=== PATIENT | female | born 1980 | race Caucasian/White ===

== ENCOUNTER 2019-08-06 10:47 | Inpatient (IN) ==
[2019-08-06] MEDS ORDERED: ASPIRIN PO ONE (11:41)
--- NOTE | 2019-08-06 11:43 | EKG Report ---
Test Performed on : 08/06/2019 11:31:37 AM Test Reason : cp Blood Pressure : / mmHG Vent. Rate : 076 BPM Atrial Rate : 076 BPM P-R Int : 132 ms QRS Dur : 072 ms QT Int : 402 ms P-R-T Axes : 022 -08 007 degrees QTc Int : 452 ms Normal sinus rhythm. Possible Left atrial enlargement Left ventricular hypertrophy Abnormal ECG No previous ECGs available Unconfirmed Result
[2019-08-06] MEDS ORDERED: NITROGLYCERIN TOP ONE (11:51)
--- NOTE | 2019-08-06 11:55 | PROVIDER DOCUMENTATION ---
HPI-Chest Pain - General Chief Complaint: Chest Pain Stated Complaint: CP Time Seen by Provider: 08/06/19 11:40 Source: patient Allergies/Adverse Reactions: Patient Allergies Allergy/AdvReac Type Severity Reaction Status Date / Time gemfibrozil Allergy ANAPHYLAXIS Verified 08/06/19 11:49 Home Medications: Home Medication List Medication Instructions Recorded Confirmed Last Taken Type Atenolol [Tenormin] 1 tab PO DAILY 08/06/19 08/06/19 08/05/19 History Clonazepam [Klonopin] 1 tab PO BID PRN 08/06/19 08/06/19 08/06/19 History Escitalopram Oxalate [Lexapro] 1 tab PO QHS 08/06/19 08/06/19 08/05/19 History Lisinopril 1 tab PO DAILY 08/06/19 08/06/19 08/06/19 History Omeprazole [Prilosec] 1 tab PO DAILY 08/06/19 08/06/19 08/06/19 History Rizatriptan [Maxalt] 1 tab PO PRN PRN 08/06/19 08/06/19 1 Week Ago History ~07/30/19 Rosuvastatin Calcium [Crestor] 1 tab PO QHS 08/06/19 08/06/19 08/05/19 History Venlafaxine HCl [Effexor Xr] 1 tab PO DAILY 08/06/19 08/06/19 08/06/19 History Zolpidem [Ambien] 1 tab PO QHS 08/06/19 08/06/19 08/05/19 History - History of Present Illness-CP Nature of Presenting Problem: 38yof present to ER with c/o midsternal CP radiating to L shoulder onset 1000 t his morning while at work at [email or web address]. Denies nv, diaphoresis, or SOB. Pt nontoxic in appearance. states she received 4, 81mg ASA and 1 Nitro SL [employer], denies change in pain. Location: reports: substernal Chest Pain Radiation: reports: shoulders (L), back (L) Quality of Pain: reports: pressure Onset/Duration: this morning Timing: still present, constant Modifying Factors: improves with: nothing Associated Symptoms: reports: back pain, headache. denies: diaphoresis, dizziness, fever/chills, nausea, shortness of breath, syncope, vomiting Nitro Today/Relief: 0.4 mg x 1, provided by EMS, no relief Aspirin Treatment Today: 81 mg x 4, provided by EMS Prior Chest Pain/Cardiac Workup: reports: echocardiography (5-6 years ago per pt), stress test (5-6 years ago per pt) Review of Systems - Adult - REVIEW OF SYSTEMS - ADULT Constitutional: reports: no symptoms reported. denies: chills, fever Eyes: reports: no symptoms reported Ears, Nose, Mouth & Throat: reports: no symptoms reported Cardiovascular: reports: see HPI, chest pain. denies: orthopnea, palpitations Respiratory: reports: no symptoms reported. denies: dyspnea on exertion, shortness of breath Gastrointestinal: reports: no symptoms reported. denies: nausea, vomiting Genitourinary: reports: no symptoms reported Musculoskeletal: reports: see HPI, back pain (L upper) Integumentary: reports: no symptoms reported Neurological: reports: no symptoms reported Psychiatric: reports: no symptoms reported Endocrine: reports: no symptoms reported Hematologic/Lymphatic: reports: no symptoms reported Allergic/Immunologic: reports: no symptoms reported All Other Systems: Reviewed and Negative Past History - Adult - PAST MEDICAL HISTORY-ADULT Review of Records: reports: Old Records Reviewed, Nursing Assessment Review, Medications Reviewed, Social history reviewed & non-contributory. Major Childhood Illnesses: reports: denies history Cardiovascular: reports: HTN, hyperlipidemia Respiratory: reports: denies history Gastrointestinal: reports: denies history Obstetrical/Gynecological: reports: denies history Genitourinary: reports: denies history Musculoskeletal: reports: denies history Neurological: reports: denies history Endocrine/Immune: reports: denies history Other Conditions: reports: denies history - PRIOR SURGERIES/PROCEDURES Surgical/Procedure History: reports: cholecystectomy, hysterectomy, tonsillectomy - SOCIAL HISTORY Smoking: denies Physical Exam-General - PHYSICAL EXAM-ADULT Initial Vital Signs Reviewed: Yes - CONSTITUTIONAL General Appearance: appears well, alert, no apparent distress - EYES Eyes: pink conjunctivae - HEAD, EARS, NOSE, MOUTH & THROAT HENMT: moist mucous membranes, normal ENT inspection - NECK Neck: full range of motion, supple, normal inspection - RESPIRATORY Respiratory: chest non-tender, lungs clear, normal breath sounds, no pleuratic chest pain, no respiratory distress, no accessory muscle use - CARDIOVASCULAR Cardiovascular: regular rate, rhythm, no edema - GASTROINTESTINAL (ABDOMEN) Abdominal Exam: normal bowel sounds, non tender, soft - LYMPHATIC Lymphatic: no adenopathy - MUSCULOSKELETAL Back Exam: normal inspection, no CVA tenderness, no vertebral tenderness Extremity: normal range of motion, normal gait, normal inspection, no pedal edema - SKIN Integumentary: normal color, warm/dry. negative: diaphoresis - NEUROLOGIC Neurologic: grossly normal, no motor/sensory deficits - PSYCHIATRIC Psych/Mental Status: normal mood/affect, normal thought content, normal thought process, oriented x 3 - HEART Score HEART Score: History: Moderately Suspicious HEART Score: ECG: Normal HEART Score: Age: < or = 45 Years HEART Score: Risk Factors for Atherosclerotic Disease: 1 or 2 Risk Factors HEART Score: Troponin: < or = Normal Limit Total HEART Score:: 2 Progress - PLAN OF CARE/RESULTS Progress/Plan/Lab Results: Vital Signs - 8 hr 08/06/19 10:47 08/06/19 11:33 08/06/19 13:01 Temperature 98.9 F Pulse Rate 79 81 72 Respiratory Rate 20 16 16 Blood Pressure 118/75 122/74 120/81 O2 Sat by Pulse Oximetry 95 99 100 08/06/19 14:00 08/06/19 15:00 08/06/19 15:01 Temperature Pulse Rate 70 72 72 Respiratory Rate 14 13 11 L Blood Pressure 126/80 120/77 O2 Sat by Pulse Oximetry 99 98 98 08/06/19 16:00 08/06/19 16:01 08/06/19 16:02 Temperature Pulse Rate 82 81 91 H Respiratory Rate 16 17 15 Blood Pressure 129/60 O2 Sat by Pulse Oximetry 100 98 08/06/19 17:01 08/06/19 17:02 Temperature Pulse Rate 75 68 Respiratory Rate 17 17 Blood Pressure 100/75 O2 Sat by Pulse Oximetry 97 97 Laboratory Results - last 24 hr 08/06/19 08/06/19 08/06/19 11:40 11:40 11:40 WBC 14.02 H RBC 4.19 L Hgb 12.8 Hct 39.6 MCV 94.5 MCH 30.5 MCHC 32.3 L RDW Std Deviation 13.5 Plt Count 329 MPV 10.4 Neut % (Auto) 68.2 Lymph % (Auto) 18.8 L [place] % (Auto) 6.7 Eos % (Auto) 5.7 Baso % (Auto) 0.6 Neut # (Auto) 9.57 H Lymph # (Auto) 2.63 [place] # (Auto) 0.94 H Eos # (Auto) 0.80 H Baso # (Auto) 0.08 D-Dimer, Quantitative Sodium 137 Potassium 4.0 Chloride 101 Carbon Dioxide 24 L Anion Gap 12 BUN 14 Creatinine 0.6 Estimated GFR/1.73 m2 > 60 BUN/Creatinine Ratio 23 Glucose 96 Calculated Osmolality 274 Calcium 8.6 L Total Bilirubin 0.27 AST 15 ALT 12 Alkaline Phosphatase 58 Creatine Kinase 78 Troponin T < 0.010 Total Protein 6.4 Albumin 4.4 Globulin 2.0 Albumin/Globulin Ratio 2.2 Urine Source Urine Color Urine Turbidity Urine pH Ur Specific [place] Urine Protein Ur Glucose (Stick) Ur Ketones (Stick) Urine Blood Urine Nitrite Urine Bilirubin Urobilinogen Dipstick Urine Leukocytes Urine WBC (Auto) Urine RBC (Auto) U Epithel Cells (Auto) Urine Bacteria (Auto) Urine Test 08/06/19 08/06/19 08/06/19 13:08 13:58 17:00 WBC RBC Hgb Hct MCV MCH MCHC RDW Std Deviation Plt Count MPV Neut % (Auto) Lymph % (Auto) [place] % (Auto) Eos % (Auto) Baso % (Auto) Neut # (Auto) Lymph # (Auto) [place] # (Auto) Eos # (Auto) Baso # (Auto) D-Dimer, Quantitative < 0.27 Sodium Potassium Chloride Carbon Dioxide Anion Gap BUN Creatinine Estimated GFR/1.73 m2 BUN/Creatinine Ratio Glucose Calculated Osmolality Calcium Total Bilirubin AST ALT Alkaline Phosphatase Creatine Kinase Troponin T < 0.010 Total Protein Albumin Globulin Albumin/Globulin Ratio Urine Source CLEAN CATCH Urine Color YELLOW Urine Turbidity CLEAR Urine pH 6.0 Ur Specific [place] 1.022 Urine Protein NEGATIVE Ur Glucose (Stick) NEGATIVE Ur Ketones (Stick) NEGATIVE Urine Blood TRACE A Urine Nitrite NEGATIVE Urine Bilirubin NEGATIVE Urobilinogen Dipstick NORMAL Urine Leukocytes NEGATIVE Urine WBC (Auto) <10 Urine RBC (Auto) <10 U Epithel Cells (Auto) <10 Urine Bacteria (Auto) NEGATIVE Urine Test 08/06/19 17:00 WBC RBC Hgb Hct MCV MCH MCHC RDW Std Deviation Plt Count MPV Neut % (Auto) Lymph % (Auto) [place] % (Auto) Eos % (Auto) Baso % (Auto) Neut # (Auto) Lymph # (Auto) [place] # (Auto) Eos # (Auto) Baso # (Auto) D-Dimer, Quantitative Sodium Potassium Chloride Carbon Dioxide Anion Gap BUN Creatinine Estimated GFR/1.73 m2 BUN/Creatinine Ratio Glucose Calculated Osmolality Calcium Total Bilirubin AST ALT Alkaline Phosphatase Creatine Kinase Troponin T Total Protein Albumin Globulin Albumin/Globulin Ratio Urine Source Urine Color Urine Turbidity Urine pH Ur Specific [place] Urine Protein Ur Glucose (Stick) Ur Ketones (Stick) Urine Blood Urine Nitrite Urine Bilirubin Urobilinogen Dipstick Urine Leukocytes Urine WBC (Auto) Urine RBC (Auto) U Epithel Cells (Auto) Urine Bacteria (Auto) Urine Test NEGATIVE Orders Category Date Time Status Admit Patient To Observation Status Routine AdmDCTranf 08/06/19 17:20 Active Daily Weights 0500 Care 08/06/19 15:19 Active Intake and Output As Ordered Q 8-HR ASSESS Care 08/06/19 15:19 Active Vital Signs Order Q 4-HR ASSESS Care 08/06/19 15:19 Active Z-Document. for Tele Applied ORDERED Care 08/06/19 15:21 Active Heart Healthy Diet Diet 08/06/19 16:13 Active NPO Diet 08/07/19 00:01 Active CHEST-2 VIEWS [RAD] Stat Exams 08/06/19 11:41 Completed MYOCARDIAL PERF SCAN, STR/REST [NM] Routine Exams 08/07/19 08:00 Ordered A1C HGB W EST AVG GLUCOSE [CHEM] Routine Lab 08/07/19 06:00 Ordered BASIC METABOLIC PANEL [CHEM] Routine Lab 08/07/19 06:00 Ordered CBC WITH DIFF [HEME] Stat Lab 08/06/19 11:40 Completed CBC WITH NO DIFF [HEME] Routine Lab 08/07/19 06:00 Ordered CK PROFILE [SP CHEM] Stat Lab 08/06/19 11:40 Completed COMPREHENSIVE METABOLIC PANEL [CHEM] Stat Lab 08/06/19 11:40 Completed Cardiac Profile [CK PROFILE] [SP CHEM] Q8H Lab 08/06/19 22:00 Ordered Cardiac Profile [CK PROFILE] [SP CHEM] Q8H Lab 08/07/19 06:00 Ordered D-DIMER [COAG] Stat Lab 08/06/19 13:08 Completed LIPID PROFILE W/CALC LDL [LIPIDS] Routine Lab 08/07/19 06:00 Ordered TEST-URINE [PREG] Stat Lab 08/06/19 17:00 Completed TROPONIN T Q8H Lab 08/06/19 22:00 Ordered TROPONIN T Q8H Lab 08/07/19 06:00 Ordered TROPONIN T Stat Lab 08/06/19 11:40 Completed TROPONIN T Stat Lab 08/06/19 13:58 Completed URINALYSIS W/POSS RFLX CULT [URINALYSIS] Stat Lab 08/06/19 17:00 Completed URINE DRUG SCREEN Routine Lab 08/06/19 17:00 Received 0.9% Sodium Chloride Inj [Ns] 1,000 ml Med 08/06/19 17:30 Active IV 75 mls/hr Acetaminophen [Tylenol] Med 08/06/19 15:41 Active 650 mg PO Q6H PRN PRN Aspirin Med 08/06/19 11:41 Discontinued 325 mg PO NOW ONE Aspirin Med 08/07/19 09:00 Active 81 mg PO DAILY Atenolol [Tenormin] Med 08/07/19 09:00 Active 25 mg PO DAILY Atenolol [Tenormin] Med 08/07/19 09:00 Discontinued DOSE mg PO DAILY Clonazepam [Klonopin] Med 08/06/19 15:43 Active 0.5 mg PO BID PRN PRN Enoxaparin [Lovenox] Med 08/07/19 09:00 Active 40 mg SUBQ Q24H Escitalopram [Lexapro] Med 08/06/19 21:00 Active 20 mg PO QHS Escitalopram [Lexapro] Med 08/06/19 21:00 Discontinued DOSE mg PO QHS LISINOpril [Prinivil] Med 08/07/19 09:00 Active 10 mg PO DAILY LISINOpril [Prinivil] Med 08/07/19 09:00 Discontinued DOSE mg PO DAILY Lido/Red Alk/Al&mg Hydrox [G.i. Cocktail] Med 08/06/19 15:11 Discontinued 30 ml PO NOW ONE Morphine Med 08/06/19 13:22 Discontinued 2 mg IV NOW ONE Morphine Med 08/06/19 14:34 Discontinued 2 mg IV NOW ONE Morphine Med 08/06/19 15:40 Active 2 mg IV Q4H PRN PRN Nitroglycerin Med 08/06/19 11:51 Discontinued 1 inch TOP NOW ONE Omeprazole [Prilosec] Med 08/07/19 07:00 Active 40 mg PO DAILY@0700 Ondansetron [Zofran] Med 08/06/19 13:22 Discontinued 4 mg IV NOW ONE Ondansetron [Zofran] Med 08/06/19 15:40 Active 4 mg IV Q4H PRN PRN ROSUVAstatin [Crestor] Med 08/06/19 21:00 Active 5 mg PO QHS Venlafaxine E.r. [Effexor Xr] Med 08/07/19 09:00 Active 150 mg PO DAILY Zolpidem [Ambien] Med 08/06/19 21:00 Active 10 mg PO QHS Oxygen Device Routine Oth 08/06/19 15:20 Active Pulse Oximetry Routine Oth 08/06/19 15:41 Active Telemetry [OM.EQ] Routine Oth 08/06/19 15:21 Active EKG [EKG] Routine Ther 08/07/19 07:00 Ordered EKG [EKG] Stat Ther 08/06/19 11:41 Draft EKG [EKG] Stat Ther 08/06/19 13:40 Draft Transfer/Admit Order [TRANSFER] Routine Transfer 08/06/19 17:21 Ordered Result Diagrams: 08/06/19 11:40 08/06/19 11:40 - REASSESSMENT Reassessment #1 Time Reassessed: 13:10 (Pt states her CP is improving but still has a WELSH. Reviewed results thus far and tx plan, pt agrees with plan.) Status: improving Reassessment #2 Time Reassessed: 14:35 (Pt states her CP is improving but still rates pain 3/10 radiating into L shoulder. Will call hospitalist to attempt admission) Status: improving - EKG 1 Time of EKG reading by physician:: 11:31 EKG Read and Signed by:: Josué Gardner EKG Interpretation (*Must complete 3 of following elements*): Abnormal Rate: 76 Rhythm: NSR QRS: LVH Comments: possible L atrial enlargement 2 Time of EKG reading by physician:: 13:47 EKG Read and Signed by:: Josué Gardner EKG Interpretation (*Must complete 3 of following elements*): Abnormal Rate: 71 Rhythm: NSR - XRAY 1 XRAY Study: Chest Impression: See EMR Report (FINDINGS: The lungs are normally expanded and clear. Heart size and mediastinal contours are normal. No pneumothorax or pleural effusion. IMPRESSION: Negative exam. Electronically signed by Brendan Hill 08/06/2019 11:55 AM) - CONSULTS/PCP/HOSPITALIST Notification #1 *Consult/PCP/Hospitalist*: FERNANDA Villar hospitalist Time Discussed: 15:12 Consult Disposition: Will see in ED, Admit Departure - Departure Date of Disposition Decision: 08/06/19 Time of Disposition Decision: 15:12 DIAGNOSIS: Chest pain Qualifiers: Chest pain type: unspecified Qualified Code(s): R07.9 - Chest pain, unspecified Disposition: ADMITTED INPATIENT Certified Medical Emergency: Emergent Condition: Fair - Critical Care Note This patient required my direct & personal management of CC.: No Attestation - Physician/ FRANK Attestation Patient care was provided by Advanced Practice Provider:: Yes Advanced Practice Provider:: Jena Cruz Advanced Practice Provider documentation review:: The Mid-level provider documentation, treatment plan and medical decision making was reviewed by the physician who agrees with all treatment and medical decision making by the P. The physician spent face to face time with patient:: No Advanced Practice Provider documentation review:: Supervising physician onsite and consulted in the evaluation and care of this patient. The physician did not have a face to face encounter with the patient.
--- NOTE | 2019-08-06 11:58 | Diag Imaging Result Doc PS360 ---
CHEST-2 VIEWS - 08/06/2019 INDICATION: cp COMPARISON: None FINDINGS: The lungs are normally expanded and clear. Heart size and mediastinal contours are normal. No pneumothorax or pleural effusion. IMPRESSION: Negative exam. Electronically signed by Brendan Hill 08/06/2019 11:55 AM
[2019-08-06 12:15] LABS: AGAP 12; ALB/GLOB RATIO 2.2; ALBUMIN 4.4 g/dL (3.5-5.0); ALKALINE PHOSPHATASE 58 U/L (32-104); BUN 14 mg/dL (8-22); CALCIUM 8.6 mg/dL (8.8-10.2); CHLORIDE 101 mmol/L (98-107); CK PROFILE 78 U/L (24-173); COSMO 274; CREATININE 0.6 mg/dL (0.5-0.9); ESTIMATED GFR > 60; GLUCOSE 96 mg/dL (70-104); GOT 15 U/L (10-30); GPT 12 U/L (10-36); SODIUM 137 mmol/L (136-145); TCO2 24 mmol/L (25-35); TOTAL BILIRUBIN 0.27 mg/dL (0.20-1.00); TOTAL PROTEIN 6.4 g/dL (6.3-8.3)
[2019-08-06] MEDS ORDERED: ZOFRAN IV ONE (13:22)
[2019-08-06] MEDS ORDERED: MORPHINE IV ONE ×2 (13:22→14:34)
[2019-08-06 13:28] LABS: BASO# 0.08 X1000 (0.0-0.2); BASO% 0.6 % (0.0-0.8); EOS% 5.7 % (0.0-10.0); HEMATOCRIT 39.6 % (37.0-47.0); HEMOGLOBIN 12.8 g/dL (12.0-16.0); LYMPH# 2.63 X1000 (1.2-3.4); LYMPH% 18.8 % (20.5-51.1); MCH 30.5 PG (27-31); MCHC 32.3 g/dL (33-37); MCV 94.5 FL (81-99); MONO# 0.94 X1000 (0.11-0.59); MONO% 6.7 % (1.7-9.3); MPV 10.4 FL (7.4-10.4); NEUT# 9.57 X1000 (1.4-6.5); NEUT% 68.2 % (42.2-75.2); PLT 329 X1000 (130-400); RBC 4.19 XMIL (4.2-5.4); RDW 13.5 % (11.5-14.5); WBC 14.02 X1000 (4.8-10.8)
--- NOTE | 2019-08-06 14:08 | EKG Report ---
Test Performed on : 08/06/2019 1:47:21 PM Test Reason : CP Blood Pressure : / mmHG Vent. Rate : 071 BPM Atrial Rate : 071 BPM P-R Int : 140 ms QRS Dur : 072 ms QT Int : 420 ms P-R-T Axes : 029 -04 004 degrees QTc Int : 456 ms Normal sinus rhythm. Cannot rule out Anterior infarct , age undetermined Abnormal ECG When compared with ECG of 06-AUG-2019 11:31, (Unconfirmed) No significant change was found Unconfirmed Result
[2019-08-06] MEDS ORDERED: G.I. COCKTAIL PO ONE (15:11)
[2019-08-06] MEDS ORDERED: ZOFRAN IV PRN (15:40)
[2019-08-06] MEDS ORDERED: TYLENOL PO PRN (15:41)
[2019-08-06] MEDS ORDERED: KLONOPIN PO PRN (15:43)
[2019-08-06] MEDS ORDERED: NS 1,000 ML IV SCH (17:30)
[2019-08-06 17:42] LABS: URINE SOURCE CLEAN CATCH
[2019-08-06 17:44] LABS: BILIRUBIN URINE NEGATIVE (NEGATIVE); BLOOD URINE TRACE (NEGATIVE); COLOR YELLOW; GLUCOSE URINE NEGATIVE (NEGATIVE); KETONE URINE NEGATIVE (NEGATIVE); LEUKOCYTES URINE NEGATIVE (NEGATIVE); NITRITE URINE NEGATIVE (NEGATIVE); PROTEIN URINE NEGATIVE (NEGATIVE); SP GRAVITY URINE 1.022; TURBIDITY URINE CLEAR (CLEAR); UROBILINOGEN URINE NORMAL (NORMAL)
[2019-08-06 17:45] LABS: UR EPITHELIAL CELLS <10 /HPF (<10); URINE BACTERIA NEGATIVE /HPF; URINE RBC <10 /HPF (<10); URINE WBC <10 /HPF (<10)
[2019-08-06 17:56] LABS: UR AMPHETAMINES QUAL NONE DETECTED (NONE DETECT); UR BARBITUATES QUAL NONE DETECTED (NONE DETECT); UR BENZODIAZEPIN QUAL NONE DETECTED (NONE DETECT); UR CANNABINOIDS QUAL NONE DETECTED (NONE DETECT); UR COCAINE QUAL NONE DETECTED (NONE DETECT); UR METHADONE QUAL NONE DETECTED (NONE DETECT); UR OPIATES QUAL PRESUMPTIVE POSITIVE (NONE DETECT); UR OXYCODONE QUAL NONE DETECTED (NONE DETECT); UR PCP QUAL NONE DETECTED (NONE DETECT)
[2019-08-06] MEDS ORDERED: LEXAPRO PO SCH ×2 (21:00)
[2019-08-06] MEDS ORDERED: AMBIEN PO SCH (21:00)
[2019-08-06] MEDS ORDERED: CRESTOR PO SCH (21:00)
[2019-08-06] MEDS: MORPHINE IV PRN (21:40)
[2019-08-07] MEDS ORDERED: PRILOSEC PO SCH (07:00)
--- NOTE | 2019-08-07 07:14 | HISTORY AND PHYSICAL ---
PRIMARY CARE PHYSICIAN: Dr. Papa Hooker. CHIEF COMPLAINT: "I've been having chest pain since 10 a.m. this morning at work". HISTORY OF PRESENT ILLNESS: The patient is a 38-year-old female, with a history of morbid obesity, anxiety disorder, depression, GERD, peptic ulcer disease, and migraines, who presented to the ER today with a chief complaint of chest pain that started at 10 a.m. this morning. The patient states that she works at [employer], and that at 10 a.m. she started having retrosternal chest tightness with radiation to the left arm. She states that at its worst she rated the pain at about an 8/10 in intensity. It was associated with diaphoresis and nausea, as well as palpitations, but no shortness of breath. The patient reports that she has never had this type of pain before. Prior to arrival, the patient received four 81 mg aspirin tablets and sublingual nitroglycerin. The patient states that when she received these medications, the chest pain did not change in intensity. The patient last had a myocardial perfusion scan in February 2013 at which time it was noted to be normal. In the ER, the patient was noted to have a blood pressure of 118/75, with a heart rate of 79. The initial cardiac enzymes were noted to be negative, and the EKG showed normal sinus rhythm, with no acute ST or T-wave changes. PAST MEDICAL HISTORY: 1. Hypertension. 2. Migraine headache. 3. GERD. 4. Depression. 5. Anxiety disorder. 6. Obesity. 7. Peptic ulcer disease. 8. Hyperlipidemia. 9. Fibromyalgia. 10. Kyphosis. PAST SURGICAL HISTORY: 1. Tonsillectomy. 2. Adenoidectomy. 3. Cholecystectomy. 4. Tubal ligation. 5. Hysterectomy. 6. Gastric bypass in 2003. FAMILY HISTORY: The patient's mother has hypertension, depression, morbid obesity, mitral valve prolapse, hyperlipidemia, and migraines. The patient's father has hypertension, hyperlipidemia, and diabetes mellitus type 2. SOCIAL HISTORY: The patient denies any tobacco, alcohol or illicit drug use. The patient currently works at [employer], and has 2 children. ALLERGIES: Gemfibrozil, which causes anaphylaxis. HOME MEDICATIONS: 1. Atenolol 25 mg p.o. daily. 2. Celebrex 200 mg p.o. daily. 3. Klonopin 0.5 mg oral twice a day p.r.n. 4. Lexapro 20 mg p.o. at bedtime. 5. Lisinopril 10 mg p.o. daily. 6. Prilosec 40 mg p.o. daily. 7. Maxalt 10 mg p.o. p.r.n. migraines. 8. Crestor 5 mg p.o. at bedtime. 9. Effexor XR 150 mg p.o. daily. 10. Ambien 10 mg p.o. at bedtime. REVIEW OF SYSTEMS: A 12-point review of systems has been performed. Please refer to the history of present illness for pertinent positives and negatives. PHYSICAL EXAMINATION: VITAL SIGNS: Temperature 98.9 degrees, blood pressure 118/75, heart rate 79, respirations 20, O2 saturation 95% on room air. GENERAL: This is a young female lying on the stretcher in no acute distress. SKIN: No rashes. No lesions. Normal capillary refill. HEENT: Head normocephalic, atraumatic. NECK: Supple. No JVD. No lymphadenopathy. No carotid bruits. HEART: S1, S2 normal. Regular rate and rhythm. LUNGS: Equal air entry bilaterally. Clear to auscultation bilaterally. ABDOMEN: Positive bowel sounds. Soft, nontender, nondistended. EXTREMITIES: No edema. No cyanosis. No calf tenderness. NEUROLOGIC: The patient is alert and oriented x4. No focal neurologic deficits noted. DIAGNOSTIC DATA: White blood cell count 14, hemoglobin 12, hematocrit 39, platelets 329,000. Sodium 137. D-dimer 0.2. Chloride 101, CO2 24, BUN 14, creatinine 0.6, glucose 96. Albumin 4.4. UA negative. Chest x-ray, no acute abnormality. EKG shows normal sinus rhythm at 71 beats per minute. ASSESSMENT AND PLAN: 1. Chest pain. We will admit the patient and rule out myocardial infarction. We will schedule the patient for stress test to be done tomorrow. We will also consult with the insurance compliance analyst for further recommendations. We will start the patient on aspirin. We will continue her beta divina and check lipid profile in the morning. 2. Fibromyalgia. Aware. 3. Morbid obesity. The patient has been counseled about weight loss and proper diet. 4. Anxiety disorder. Continue on Klonopin. 5. Depression. Continue on Effexor. 6. Peptic ulcer disease. Continue on proton pump inhibitor therapy. 7. Hypertension. Continue on the current antihypertensive regimen. 8. Deep vein thrombosis prophylaxis. We will start the patient on Lovenox. cc: Irene Mesa MD
[2019-08-07 07:19] LABS: HEMATOCRIT 38.9 % (37.0-47.0); HEMOGLOBIN 12.6 g/dL (12.0-16.0); MCH 30.8 PG (27-31); MCHC 32.4 g/dL (33-37); MCV 95.1 FL (81-99); RBC 4.09 XMIL (4.2-5.4); RDW 13.5 % (11.5-14.5)
[2019-08-07 07:32] LABS: HEMOGLOBIN A1C 5.5 % (4.8-6.0)
[2019-08-07 07:48] LABS: AGAP 10; BUN 12 mg/dL (8-22); CALCIUM 8.7 mg/dL (8.8-10.2); CHLORIDE 106 mmol/L (98-107); CHOLESTEROL 130 mg/dL (0-200); CK PROFILE 48 U/L (24-173); COSMO 283; CREATININE 0.6 mg/dL (0.5-0.9); ESTIMATED GFR > 60; GLUCOSE 105 mg/dL (70-104); HDL 37 mg/dL (45-65); LDL 49 mg/dL; POTASSIUM 4.5 mmol/L (3.5-5.1); SODIUM 142 mmol/L (136-145); TCO2 26 mmol/L (25-35); TRIGLYCERIDES 221 mg/dL (35-135); VLDL 44 mg/dL
--- NOTE | 2019-08-07 07:52 | EKG Report ---
Test Performed on : 08/07/2019 07:28:15 AM Test Reason : chest pain Blood Pressure : / mmHG Vent. Rate : 071 BPM Atrial Rate : 071 BPM P-R Int : 140 ms QRS Dur : 070 ms QT Int : 400 ms P-R-T Axes : 028 -04 007 degrees QTc Int : 434 ms Normal sinus rhythm. Normal ECG When compared with ECG of 06-AUG-2019 13:47, (Unconfirmed) No significant change was found Confirmed by Eric MORGAN, Abel Manzanares ([id number]) on 08/07/2019 9:10:40 AM
[2019-08-07] MEDS ORDERED: LEXISCAN ONE (07:57)
[2019-08-07] MEDS ORDERED: ASPIRIN PO SCH (09:00)
[2019-08-07] MEDS ORDERED: EFFEXOR XR PO SCH (09:00)
[2019-08-07] MEDS ORDERED: LOVENOX SUBQ SCH (09:00)
[2019-08-07] MEDS ORDERED: PRINIVIL PO SCH ×2 (09:00)
[2019-08-07] MEDS ORDERED: TENORMIN PO SCH ×2 (09:00)
[2019-08-07] MEDS: MORPHINE IV PRN (09:54)
--- NOTE | 2019-08-07 12:05 | Diag Imaging Result Document ---
PROCEDURE NAME: MYOCARDIAL PERF SCAN, STR/REST - 08/07/2019 REFERRING PHYSICIAN: Dr. Mesa. PROCEDURE: Lexiscan Cardiolite stress. SUMMARY: Lexiscan was infused per standard protocol. There was no chest pain. 15.3 mCi of Cardiolite was injected for the rest phase; 45 mCi of Cardiolite was injected for the stress phase. Images revealed normal left ventricular cavity size, normal myocardial perfusion. There was significant chest wall and diaphragmatic attenuation. Left ventricular ejection fraction by gated SPECT was 80%. CONCLUSIONS: 1. No chest pain. 2. Negative Lexiscan stress electrocardiogram. 3. Normal myocardial perfusion. 4. Left ventricular ejection fraction by gated SPECT was 80%. cc: MD Irene Leal MD
[2019-08-07 16:03] VITALS: BP 116/74
--- NOTE | 2019-08-07 18:54 | DISCHARGE SUMMARY ---
ADMISSION DATE: 08/06/2019 DISCHARGE DATE: 08/07/2019 PRIMARY CARE PHYSICIAN: She is followed by Dr. Papa ortega. HISTORY OF PRESENT ILLNESS: She was having chest pain since about 10 o'clock in the morning of 08/06/2018, described as left-sided. It was sharp in nature and no real radiation into the jaw, maybe a little bit into her left shoulder. No shortness of breath. No diaphoresis. A 38-year- old history with obesity, anxiety disorder, depression, gastroesophageal reflux disease, peptic ulcer disease, migraines, who presented to the emergency room with chief complaint of chest pain which started about 10 in the morning. The perforation states she works at [employer] and at 10 a.m. she started having retrosternal chest tightness, radiation to left shoulder. She stated that it is worse when it radiated about 8/10 in intensity associated with diaphoresis and nausea as well as palpitations, but no shortness of breath. Patient states that she has never had this type of pain before, although, she did say she has had costochondritis before. The patient had four 81 mg aspirin and sublingual nitroglycerin. PAST MEDICAL HISTORY: 1. Hypertension. 2. Migraine headaches. 3. Gastroesophageal reflux disease. 4. Depression. 5. Anxiety disorder. 6. Obesity. 7. Peptic ulcer disease. 8. Hyperlipidemia. 9. Fibromyalgia. 10. Kyphosis. PAST SURGICAL HISTORY: 1. Tonsillectomy. 2. Adenoidectomy. 3. Cholecystectomy. 4. Tubal ligation. 5. Hysterectomy. 6. Gastric bypass in 2003. MEDICATIONS: I reviewed her list of medications. The patient was on atenolol, Celebrex, Klonopin, Lexapro, lisinopril, Prilosec, Maxalt, Crestor, Effexor, and Ambien. LABORATORY DATA: Her cardiac enzymes were negative. Troponin was less than 0.01. CK was less than 60. HOSPITAL COURSE: She underwent a myocardial perfusion scan. No chest pain. Negative Lexiscan. Normal myocardial perfusion. Normal left ventricular ejection fraction which was 80%. The patient had no further chest pain. This is likely musculoskeletal pain. No sign of angina or cardiac insufficiency. PLAN: So, the plan is to let her go home. Discharged her on her previous medications. FOLLOW UP: Followup with her primary care physician. DISPOSITION: I gave her note to go back to work. Today is Tuesday. She would like to go back on , so she will go back on . DISCHARGE MEDICATIONS: She will be on aspirin 81 mg a day, Tenormin 25 mg daily, Klonopin 0.5 mg b.i.d. p.r.n., Lexapro 20 mg at bedtime, Prinivil 20 mg daily, Prilosec 40 mg a day, Crestor 5 mg at bedtime, Effexor XR 150 mg daily, Ambien 10 mg at bedtime. cc: Suhail Stone MD
== END 2019-08-07 19:59 | disposition home or self-care (01) | DRG 313 ==
LOC: ED 10:47 → 3N 10:47 → OBSVTOIN 17:27 → SUATTDRO 17:27
PROVIDERS: ATTEND Emergency Medicine